=== PATIENT | female | born 1985 ===

== ENCOUNTER 2018-02-02 11:16 | Emergency (ER) | payer MEDICAID ==
[2018-02-02 12:47] VITALS: RESP 18; TEMP 98.2; O2SAT 98; BMI 28.3
[2018-02-02] MEDS ORDERED: Albuterol-Ipratrop 3 mg / 0.5 (3 ml) UD IH STA (12:49)
--- NOTE | 2018-02-02 13:30 | ED PDOC ---
Arrival/HPI - General Chief Complaint: Shortness Of Breath Time Seen by Provider: 02/02/18 12:49 Historian: Patient - History of Present Illness Narrative History of Present Illness (Text): 02/02/18 12:46 A 32 year old female, whose past medical history includes asthma, presents to the emergency department complaining of wheezing for 2 days. Patient states she uses nebulizer at home every other day. However ran out of medication 2 days ago. She reports that she does not have PMD follow-up till the so came to ED to get nebulizer as she did not want her asthma to get bad without her nebulizer. Denies fever, cough, uri complaints. Denies hx of intubations. PMD: Dr. Finley Time/Duration: < week (2 days) Symptom Onset: Gradual Symptom Course: Unchanged Past Medical History - Provider Review Nursing Documentation Reviewed: Yes - Cardiac Hx Cardiac Disorders: No - Pulmonary Hx Respiratory Disorders: Yes Hx Asthma: Yes - Neurological Hx Neurological Disorder: No - HEENT Hx HEENT Disorder: No - Renal Hx Renal Disorder: No - Endocrine/Metabolic Hx Endocrine Disorders: No - Hematological/Oncological Hx Blood Disorders: No - Integumentary Hx Dermatological Disorder: No - Musculoskeletal/Rheumatological Hx Musculoskeletal Disorders: No - Gastrointestinal Hx Gastrointestinal Disorders: No - Genitourinary/Gynecological Hx Genitourinary Disorders: No - Psychiatric Hx Psychophysiologic Disorder: No Hx Substance Use: No Family/Social History - Physician Review Nursing Documentation Reviewed: Yes Family/Social History: No Known Family HX Smoking Status: Former Smoker Hx Alcohol Use: Yes Frequency of alcohol use: Socially Hx Substance Use: No Allergies/Home Meds Allergies/Adverse Reactions: Allergies No Known Allergies Allergy (Verified 02/02/18 12:45) Review of Systems - Physician Review All systems were reviewed & negative as marked: Yes - Review of Systems Constitutional: absent: Weight Change, Fevers Respiratory: Wheezing. absent: Cough Cardiovascular: absent: Chest Pain, Palpitations, Edema, Calf Pain, [place], Orthopnea, Syncope Gastrointestinal: absent: Abdominal Pain, Constipation, Diarrhea, Nausea, Vomiting Genitourinary Female: absent: Dysuria Skin: absent: Rash, Pruritis Neurological: absent: Headache, Dizziness, Focal Weakness Psychiatric: absent: Anxiety Physical Exam Vital Signs Reviewed: Yes Vital Signs Temp Pulse Resp BP Pulse Ox 02/02/18 13:03 18 02/02/18 12:40 98.2 F 73 18 119/79 98 Temperature: Afebrile Blood Pressure: Normal Pulse: Regular Respiratory Rate: Normal Appearance: Positive for: Well-Appearing Pain Distress: None Mental Status: Positive for: Alert and Oriented X 3 - Systems Exam Head: Present: Atraumatic, Normocephalic Pupils: Present: PERRL Extroacular Muscles: Present: EOMI Conjunctiva: Present: Normal Mouth: Present: Moist Mucous Membranes Neck: Present: Normal Range of Motion Respiratory/Chest: Present: Wheezes (wheezing at base). No: Respiratory Distress Cardiovascular: Present: Regular Rate and Rhythm, Normal S1, S2. No: Murmurs Abdomen: Present: Normal Bowel Sounds. No: Tenderness, Distention, Peritoneal Signs Upper Extremity: Present: Normal Inspection Lower Extremity: Present: Normal Inspection. No: Edema Neurological: Present: GCS=15, CN II-XII Intact Psychiatric: Present: Alert, Oriented x 3, Normal Insight, Normal Concentration Medical Decision Making ED Course and Treatment: 02/02/18 12:49 Impression: 32 year old female with wheezing due to asthma. Physical exam shows some wheezing to base of lung pugh, no other acute findings on examination. She reports she came for albuterol refill Plan: -- Duoneb -- Reassess and disposition Progress Notes: 02/02/18 13:35 On reevaluation, wheezing resolved. Feels better and wants to go home - Medication Orders Current Medication Orders: Discontinued Medications Albuterol/Ipratropium (Duoneb 3 Mg/0.5 Mg (3 Ml) Ud) 3 ml IH STAT STA Stop: 02/02/18 12:50 Last Admin: 02/02/18 13:00 Dose: 3 ml - Scribe Statement The provider has reviewed the documentation as recorded by the Ermelinda Hanley Provider Scribe Attestation: All medical record entries made by the Maria Eugeniaibrebeka were at my direction and personally dictated by me. I have reviewed the chart and agree that the record accurately reflects my personal performance of the history, physical exam, medical decision making, and the department course for this patient. I have also personally directed, reviewed, and agree with the discharge instructions and disposition. Disposition/Present on Arrival - Present on Arrival Any Indicators Present on Arrival: No History of DVT/PE: No History of Uncontrolled Diabetes: No Urinary Catheter: No History of Decub. Ulcer: No History Surgical Site Infection Following: None - Disposition Have Diagnosis and Disposition been Completed?: Yes Diagnosis: Asthma Disposition: HOME/ ROUTINE Disposition Time: 13:36 Patient Plan: Discharge Patient Problems: Current Active Problems Problem Status Onset Asthma Acute Condition: GOOD Discharge Instructions (ExitCare): Asthma in Adults, Asthma, Adult (DC), Avoiding Asthma Triggers Additional Instructions: Follow-up with your PMD within 2 days. Return to ED if condition worsens. Use nebulizer as needed Prescriptions: Albuterol HFA [Ventolin HFA 90 mcg/actuation (8 g)] 2 puff IH [id number] #1 puff Albuterol 0.083% [Albuterol Sulfate 3 Ml] 3 ml IH Q6 #100 neb Referrals: Key Finley MD [Primary Care Provider] - Follow up with primary Forms: [employer] (Persian)
[2018-02-02 13:59] VITALS: BP 114/72; PULSE 70
== END 2018-02-02 13:59 | disposition home or self-care (01) ==
LOC: MERGE 11:16 → ED 11:16
DX: J45.909 Unspecified asthma, uncomplicated (principal); Z87.891 Personal history of nicotine dependence

== ENCOUNTER 2018-04-06 21:34 | Observation (INO) | payer MEDICAID ==
--- NOTE | 2018-04-06 22:41 | ED PDOC ---
Arrival/HPI - General Chief Complaint: Anxiety Time Seen by Provider: 04/06/18 22:33 Historian: Patient, Partner - History of Present Illness Narrative History of Present Illness (Text): 04/06/18 22:38 A 32 year old female, whose past medical history includes asthma and anemia, on Azithromycin and Prednisone, presents to the emergency department for complaint of dizziness and 2 near syncopal episodes today. The patient's fiancee states that she was feeling dizzy and complained of face tingling and her hands cramping up. He notes that the patient had near syncopal episodes twice today. The patient denies fevers, chills, chest pain, shortness of breath, nausea, vomiting, diarrhea, urinary/bowel changes, or any other complaint. PMD: Dr. Justin Jenkins Time/Duration: Other (Today) Symptom Onset: Sudden Symptom Course: Unchanged Activities at Onset: Rest, Light Context: Home Past Medical History - Provider Review Nursing Documentation Reviewed: Yes - Infectious Disease Hx of Infectious Diseases: None - Cardiac Hx Cardiac Disorders: No - Pulmonary Hx Respiratory Disorders: Yes Hx Asthma: Yes - Neurological Hx Neurological Disorder: No - HEENT Hx HEENT Disorder: No - Renal Hx Renal Disorder: No - Endocrine/Metabolic Hx Endocrine Disorders: No - Hematological/Oncological Hx Blood Disorders: Yes Hx Anemia: Yes - Integumentary Hx Dermatological Disorder: No - Musculoskeletal/Rheumatological Hx Musculoskeletal Disorders: No - Gastrointestinal Hx Gastrointestinal Disorders: No - Genitourinary/Gynecological Hx Genitourinary Disorders: No - Psychiatric Hx Psychophysiologic Disorder: No Hx Substance Use: No Family/Social History - Physician Review Nursing Documentation Reviewed: Yes Family/Social History: No Known Family HX Smoking Status: Former Smoker Hx Alcohol Use: Yes Hx Substance Use: No Allergies/Home Meds Allergies/Adverse Reactions: Allergies No Known Allergies Allergy (Verified 02/02/18 12:45) Home Medications: Home Meds Medication Instructions Recorded Confirmed Azithromycin [Z-Peter] 250 mg PO DAILY 04/06/18 04/06/18 predniSONE [predniSONE Tab] 20 mg PO DAILY 04/06/18 04/06/18 Review of Systems - Physician Review All systems were reviewed & negative as marked: Yes - Review of Systems Constitutional: absent: Fevers, Night Sweats Respiratory: absent: SOB, Cough Cardiovascular: absent: Chest Pain Gastrointestinal: absent: Stool Changes, Diarrhea, Nausea, Vomiting Genitourinary Female: absent: Urine Output Changes Neurological: Dizziness Physical Exam Vital Signs Reviewed: Yes Vital Signs Temp Pulse Resp BP Pulse Ox 04/06/18 21:50 98.6 F 98 H 18 129/79 100 Temperature: Afebrile Blood Pressure: Normal Pulse: Regular Respiratory Rate: Normal Appearance: Positive for: Well-Appearing, Non-Toxic, Comfortable Pain Distress: None Mental Status: Positive for: Alert and Oriented X 3 - Systems Exam Head: Present: Atraumatic, Normocephalic Pupils: Present: PERRL Extroacular Muscles: Present: EOMI Conjunctiva: Present: Normal Ears: Present: NORMAL TM Mouth: Present: Moist Mucous Membranes Pharnyx: Present: Normal Neck: Present: Normal Range of Motion Respiratory/Chest: Present: Clear to Auscultation, Good Air Exchange. No: Respiratory Distress, Accessory Muscle Use Cardiovascular: Present: Regular Rate and Rhythm, Normal S1, S2. No: Murmurs Abdomen: No: Tenderness, Distention, Peritoneal Signs Back: Present: Normal Inspection Upper Extremity: Present: Normal Inspection. No: Cyanosis, Edema Lower Extremity: Present: Normal Inspection. No: Edema Neurological: Present: GCS=15, CN II-XII Intact, Speech Normal, Motor Func Grossly Intact, Normal Sensory Function Skin: Present: Warm, Dry, Normal Color. No: Rashes Psychiatric: Present: Alert, Oriented x 3, Normal Insight, Normal Concentration Medical Decision Making ED Course and Treatment: 04/06/18 22:43 Impression: A 32 year old female presents to the emergency department complaining of dizziness and near syncopal episodes today. Plan: -- Head CT -- EKG -- Chest X-Ray -- Labs -- IV Fluids -- Reassess and disposition Progress Notes: 04/07/18 00:18: Chest X-Ray read and interpreted by me shows no acute processes. EKG: Ordered, reviewed, and independently interpreted the EKG. Rate : 60 BPM Rhythm : NSR CT Head Without Intravenous Contrast Dictated and Authenticated by: Augustin Berman MD 04/06/2018 11:40 PM Eastern Time ([place] & [place]) IMPRESSION: 1. No definite acute intracranial abnormality. 04/07/18 01:35: Case discussed in detail with [facility] resident and Dr. Irwin who accepts patient to hospitalist service. - Lab Interpretations Lab Results: 04/06/18 23:09 04/06/18 23:09 Lab Results 04/06/18 23:09: WBC 8.5, RBC 4.46, Hgb 13.0, Hct 37.5, MCV 84.1, MCH 29.1, MCHC 34.7, RDW 12.7, Plt Count 292, MPV 9.1 04/06/18 23:09: Sodium 144, Potassium 4.2, Chloride 107, Carbon Dioxide 23, Anion Gap 18, BUN 20, Creatinine 0.7, Est GFR ( Amer) > 60, Est GFR (Non- Af Amer) > 60, Random Glucose 132 H, Calcium 9.4, Total Bilirubin 0.1 L, AST 30 , ALT 25, Alkaline Phosphatase 50, Lactate Dehydrogenase 376, Total Creatine Kinase 69, Troponin I < 0.01, Total Protein 7.8, Albumin 4.6, Globulin 3.2, Albumin/Globulin Ratio 1.4 I have reviewed the lab results: Yes - RAD Interpretation Radiology Orders: 04/06/18 22:43 CHEST PORTABLE [RAD] Stat 04/06/18 22:44 HEAD W/O CONTRAST [CT] Stat - EKG Interpretation Interpreted by ED Physician: Yes Type: 12 lead EKG - Medication Orders Current Medication Orders: Sodium Chloride (Sodium Chloride 0.9%) 1,000 mls @ 100 mls/hr IV .Q10H JEANETTE Last Admin: 04/06/18 23:20 Dose: 100 mls/hr eMAR Start Stop Document 04/06/18 23:20 JOL (Rec: 04/06/18 23:41 JOL [id number]) Intravenous Solution Start Date 04/06/18 Start Time 23:20 Discontinued Medications Acetaminophen (Tylenol 325mg Tab) 650 mg PO STAT STA Stop: 04/07/18 01:27 Meclizine HCl (Antivert) 25 mg PO STAT STA Stop: 04/07/18 01:32 - Scribe Statement The provider has reviewed the documentation as recorded by the Maria Eugeniaibe Ivet Guo Provider Scribe Attestation: All medical record entries made by the Scribe were at my direction and personally dictated by me. I have reviewed the chart and agree that the record accurately reflects my personal performance of the history, physical exam, medical decision making, and the department course for this patient. I have also personally directed, reviewed, and agree with the discharge instructions and disposition. Disposition/Present on Arrival - Present on Arrival Any Indicators Present on Arrival: No History of DVT/PE: No History of Uncontrolled Diabetes: No Urinary Catheter: No History of Decub. Ulcer: No History Surgical Site Infection Following: None - Disposition Have Diagnosis and Disposition been Completed?: Yes Diagnosis: Near syncope, Vertigo Disposition: HOSPITALIZED Disposition Time: 01:42 Condition: STABLE Referrals: Key Finley MD [Primary Care Provider] - Follow up with primary Forms: [employer] (Malian)
[2018-04-06 23:19] LABS: MEAN CELL VOLUME 84.1 fl (80.0-105.0); MEAN CORPUSCULAR HEMOGLOBIN 29.1 pg (25.0-35.0); MEAN CORPUSCULAR HGB CONC 34.7 g/dl (31.0-37.0); MEAN PLATELET VOLUME 9.1 fl (7.0-11.0); RBC 4.46 10^6/uL (3.5-6.1); RED CELL DISTRIBUTION WIDTH 12.7 % (11.5-14.5); WHITE BLOOD COUNT 8.5 10^3/ul (4.5-11.0)
[2018-04-06] MEDS: Sodium Chloride 0.9% 1,000 ML IV SCH (23:20)
[2018-04-06 23:33] LABS: ALB/GLOB RATIO 1.4 (1.1-1.8); ALBUMIN 4.6 g/dL (3.0-4.8); ALT/SGPT 25 U/L (7-56); AST/SGOT 30 U/L (14-36); BLOOD UREA NITROGEN 20 mg/dL (7-21); CALCIUM 9.4 mg/dL (8.4-10.5); GFR AFRICAN-AMERICAN > 60; GFR NON-AFRICAN AMERICAN > 60
--- NOTE | 2018-04-06 23:40 | CT ---
EXAM: CT Head Without Intravenous Contrast CLINICAL HISTORY: 32 years old, female; Signs and symptoms; Dizziness; Additional info: Dizzy/near syncope TECHNIQUE: Axial computed tomography images of the head/brain without intravenous contrast. All CT scans at this facility use one or more dose reduction techniques, viz.: automated exposure control; ma/kV adjustment per patient size (including targeted exams where dose is matched to indication; i.e. head); or iterative reconstruction technique. Coronal and sagittal reformatted images were created and reviewed. COMPARISON: No relevant prior studies available. FINDINGS: Brain: No intracranial hemorrhage. No mass. No definite edema. Ventricles: No hydrocephalus. Bones/joints: No acute fracture. Soft tissues: Unremarkable. Sinuses: No acute sinusitis. Mastoid air cells: No mastoid effusion. Orbits: Unremarkable as visualized. IMPRESSION: 1. No definite acute intracranial abnormality.
[2018-04-06 23:44] LABS: TROPONIN I < 0.01 ng/mL
--- NOTE | 2018-04-07 02:41 | CP.PCM.HP ---
History of Present Illness - History of Present Illness History of Present Illness: PGY-[address] Irwin CC: Near syncope, Vertigo Ms Price, 32 year old female, whose past medical history includes asthma and pernicious anemia, on Azithromycin and Prednisone (just took 1st pills), c/o dizziness and 2 near syncopal episodes today. Pt started to have dry cough and sore throat recently, saw Dr Finley yesterday. During the office visit at 3pm, she receive B12 shot and 2nd hepatitis B vaccine series. She was prescribed Z- peter and predisone. At 5pm, pt took the prednisone and azithromycin. At 7pm, pt felt dizzy with room spinning, associated with face tinging and hands cramping up. Fiance helped pt to take a warm shower. As pt sat down, she became diaphoretic and briefly loss of vision. the spinning, lightheaded sensation and freddy-oral numbness was worsen with hand cramps b/l. The patient's fiancee notes that the patient had near syncopal episodes twice. All symptoms improves 2 hours after ED arrival. Pt denies ever taking Z-peter before. denies fevers, chills, tinnitus, chest pain, shortness of breath, nausea, vomiting, diarrhea, urinary/bowel changes, or any other complaint. PMD: Dr. Key Finley PMH: Asthma since childhood. never intubated. hospitalization at [facility] more than 5 years ago for asthma Pernicious Anemia, diagnosed recently Seasonal allergy OGBYN: . 1 surgical LMP 04/02/18. Heavy menses, irregular. Not on oral contraceptive pills PSH: None FH: Lupus, heart disease, DM, asthma SH: Live with 4 kids and fiance Former smoker, quit 2014. 2ppd x 15 years Wine once every 3-4 months Denies drugs All: NKDA Med: Azithromycin [Z-Peter] 250 mg daily filled 5/10 predniSONE [predniSONE Tab] 20 mg PO filled 5/10 Present on Admission - Present on Admission Any Indicators Present on Admission: No Past Patient History - Infectious Disease Hx of Infectious Diseases: None - Past Social History Smoking Status: Former Smoker - CARDIAC Hx Cardiac Disorders: No - PULMONARY Hx Respiratory Disorders: Yes Hx Asthma: Yes - NEUROLOGICAL Hx Neurological Disorder: No - HEENT Hx HEENT Problems: No - RENAL Hx Chronic Kidney Disease: No - ENDOCRINE/METABOLIC Hx Endocrine Disorders: No - HEMATOLOGICAL/ONCOLOGICAL Hx Blood Disorders: Yes Hx Anemia: Yes - INTEGUMENTARY Hx Dermatological Problems: No - MUSCULOSKELETAL/RHEUMATOLOGICAL Hx Musculoskeletal Disorders: No - GASTROINTESTINAL Hx Gastrointestinal Disorders: No - GENITOURINARY/GYNECOLOGICAL Hx Genitourinary Disorders: No - PSYCHIATRIC Hx Psychophysiologic Disorder: No Hx Substance Use: No - SURGICAL HISTORY Hx Surgeries: No Meds Allergies/Adverse Reactions: Allergies Allergy/AdvReac Type Severity Reaction Status Date / Time No Known Allergies Allergy Verified 02/02/18 12:45 Physical Exam - Constitutional Appears: No Acute Distress - Head Exam Head Exam: ATRAUMATIC, NORMAL INSPECTION, NORMOCEPHALIC - Eye Exam Eye Exam: EOMI, Normal appearance, PERRL. absent: Scleral icterus Pupil Exam: NORMAL ACCOMODATION - ENT Exam ENT Exam: Mucous Membranes Moist Additional comments: tender frontal sinus boggy turbinates b/l with erythema mucosa (nose) slightly injected throat post nasal drip - Neck Exam Neck exam: Positive for: Normal Inspection. Negative for: Lymphadenopathy - Respiratory Exam Respiratory Exam: Clear to Auscultation Bilateral. absent: Rales, Rhonchi, Wheezes - Cardiovascular Exam Cardiovascular Exam: REGULAR RHYTHM, +S1, +S2. absent: Systolic Murmur - GI/Abdominal Exam GI & Abdominal Exam: Normal Bowel Sounds, Soft. absent: Distended, Firm, Rigid - Extremities Exam Extremities exam: Positive for: normal capillary refill, pedal pulses present. Negative for: calf tenderness, pedal edema - Back Exam Back exam: absent: CVA tenderness (L), CVA tenderness (R), paraspinal tenderness - Neurological Exam Neurological exam: Alert, CN II-XII Intact, Oriented x3 Additional comments: AAOx3 CN 2-12 intact normal speech motor 5/5 sensory intact rapid alternative movement intact neg francis-hallpike test. no nystagmus Results - Vital Signs Recent Vital Signs: Last Vital Signs Temp 98.6 F 04/06/18 21:50 Pulse 98 H 04/06/18 21:50 Resp 18 04/06/18 21:50 BP 129/79 04/06/18 21:50 Pulse Ox 100 04/06/18 21:50 - Labs Result Diagrams: 04/06/18 23:09 04/06/18 23:09 Assessment & Plan - Assessment and Plan (Free Text) Plan: Ms Price, 32 year old female, whose past medical history includes asthma and pernicious anemia, on Azithromycin and Prednisone (just took 1st pill each), c/ o dizziness with room spinning, associated with face tingling and hands cramping. She had 2 near syncopal episodes today. Near syncope with vertigionous component, R/O metabolic cause R/O medication side effect Questionable bppv vs labyrinthitis. Doubt Menieres disease. - Hold Azithromycin - Syncope workup: Telemetry, orthostatic VS, carotid doppler, echo - CT head was negative for acute intracranial abnormality. - EKG shows NSR at 60 BPM - High Fall risk - Defer to neuro re: decision of meclizine - A1C, TSH face tingling, hands cramping Questionable due to mild dystonic reaction from azithromycin Possible electrolyte abnormality - occupational, physical therapy - CBC, CMP Sinusitis, allergic vs viral - Observe off antibiotics Asthma - Continue prednisolone taper PVX: protonix, scd s/r/d/w Dr Irwin
[2018-04-07 04:29] VITALS: BMI 28.5
[2018-04-07] MEDS ORDERED: Pantoprazole 40 mg EC Tab PO SCH (06:00)
[2018-04-07 06:24] LABS: BASO # 0.01 K/mm3 (0.0-2.0); BASO % 0.2 % (0.0-3.0); EOS # 0.1 (0.0-0.7); EOS % 1.5 % (1.5-5.0); GRAN # 3.95 (1.4-6.5); GRAN % 60.3 % (50.0-68.0); LYMPH # 1.9 (1.2-3.4); LYMPH % 28.7 % (22.0-35.0); MEAN CELL VOLUME 84.6 fl (80.0-105.0); MEAN CORPUSCULAR HGB CONC 33.1 g/dl (31.0-37.0); MONO # 0.6 (0.1-0.6); MONO % 9.3 % (1.0-6.0); RBC 4.29 10^6/uL (3.5-6.1); RED CELL DISTRIBUTION WIDTH 12.8 % (11.5-14.5); WHITE BLOOD COUNT 6.6 10^3/ul (4.5-11.0)
[2018-04-07 06:57] LABS: FREE T4 0.88 ng/dL (0.78-2.19)
[2018-04-07 07:22] LABS: ALB/GLOB RATIO 1.3 (1.1-1.8); ALBUMIN 3.9 g/dL (3.0-4.8); ALT/SGPT 20 U/L (7-56); AST/SGOT 26 U/L (14-36); BLOOD UREA NITROGEN 13 mg/dL (7-21); CALCIUM 8.7 mg/dL (8.4-10.5); GFR AFRICAN-AMERICAN > 60; GFR NON-AFRICAN AMERICAN > 60
[2018-04-07 08:01] VITALS: BP 108/71; RESP 19; TEMP 98.1; O2SAT 98
--- NOTE | 2018-04-07 08:24 | CP.PCM.CON ---
<Roxi Reyes - Last Filed: 04/07/18 15:32> History of Present Illness - History of Present Illness History of Present Illness: 32yo female PMHx asthma and pernicious anemia presented [place] [facility] [place] for dizziness and 2 near syncopal episodes. Patient reports she was feeling a little sick for a couple days prior and saw her PMD at 2:30pm where she got a b12 shot, HepA, HepB, and was prescribed a Zpack and Medrol dose pack. Patient returned home and upon taking her newly prescribed medications, she complained of some dizziness and had to lie down. She rpeorts her "eyesight went black" for a minute before coming back and she felt dizzy like the room was spinning. She stated that every time she would look a certain direction she felt like her eyes needed to "catch up." She also complained of her lips feeling numb and her noticed she looked pale and like her lips were puckered. She also had cramping of her hands and feet with associated numbness. She states when EMS came she didn't remember speaking to them. When she was brought into the ER she felt well for a couple minutes and wanted to go home and then started to complain of a 7-8/10 headache that was frontal, radiating to her occiput. She denied any associated photophobia or ringing of the ears. While in the ED she was also having trouble walking as she felt unstable and weak. Patient's reported she has had similar symptoms for the past 3-4 years but they have progressively worsened in the last 2-3 months. Patient's son was recently sick with an ear and throat infection which the patient believes she might have contracted- she had a temp 100.7F 2 days ago and some flu like symptoms. She also complained of some chest tightness and worsening asthma symptoms and a dry cough. She complained of nausea had diarrhea for 3 days [3-4x/day which resolved the day of admission]. Otherwise patient denied sore throat, chest pain , palpitations, SOB, abd pain, pain/swelling of her legs b/l. She did admit to some hand swelling that occurs when she exercises and in the heat. 12 point ROS obtained and negative, except as per HPI. PMHx: asthma, pernicious anemia PSurgHx: D&C Meds: pls see chart ALL: NKDA FamHx: Lupus, heart disease, DM, asthma; sister with Afib, mom with HTN SocHx: Live with 4 kids and fiance, Former smoker, quit 2014 and used to smoke 2ppd x since she was 15yo, Ocassional social EtOH, Denies drugs. PMD: [place] Neuro: none Review of Systems - Review of Systems All systems: reviewed and no additional remarkable complaints except Review of Systems: as per HPI Past Patient History - Infectious Disease Hx of Infectious Diseases: None - Past Social History Smoking Status: Former Smoker - CARDIAC Hx Cardiac Disorders: No - PULMONARY Hx Respiratory Disorders: Yes Hx Asthma: Yes - NEUROLOGICAL Hx Neurological Disorder: No - HEENT Hx HEENT Problems: No - RENAL Hx Chronic Kidney Disease: No - ENDOCRINE/METABOLIC Hx Endocrine Disorders: No - HEMATOLOGICAL/ONCOLOGICAL Hx Blood Disorders: Yes Hx Anemia: Yes - INTEGUMENTARY Hx Dermatological Problems: No - MUSCULOSKELETAL/RHEUMATOLOGICAL Hx Musculoskeletal Disorders: No - GASTROINTESTINAL Hx Gastrointestinal Disorders: No - GENITOURINARY/GYNECOLOGICAL Hx Genitourinary Disorders: No - PSYCHIATRIC Hx Psychophysiologic Disorder: No Hx Substance Use: No - SURGICAL HISTORY Hx Surgeries: No Meds Home Medications: Home Medication List Medication Instructions Recorded Confirmed Type Diazepam [Valium] 2 mg PO Q12H PRN #10 tablet 04/07/18 Rx Methylprednisolone [Medrol Dose See Taper PO DAILY #21 mg 04/07/18 Rx Pack (21 tabs)] Allergies/Adverse Reactions: Allergies Allergy/AdvReac Type Severity Reaction Status Date / Time No Known Allergies Allergy Verified 02/02/18 12:45 - Medications Medications: Current Medications Sodium Chloride (Sodium Chloride 0.9%) 1,000 mls @ 100 mls/hr IV .Q10H [facility] Last Admin: 04/06/18 23:20 Dose: 100 mls/hr Methylprednisolone (Medrol) 8 mg PO DAILY JEANETTE Pantoprazole Sodium (Protonix Ec Tab) 40 mg PO 0600 [facility] Physical Exam - Constitutional Appears: Non-toxic, No Acute Distress - Head Exam Head Exam: ATRAUMATIC, NORMAL INSPECTION, NORMOCEPHALIC - Eye Exam Eye Exam: EOMI, Normal appearance, PERRL Pupil Exam: NORMAL ACCOMODATION - ENT Exam ENT Exam: Mucous Membranes Moist - Respiratory Exam Respiratory Exam: NORMAL BREATHING PATTERN. absent: Accessory Muscle Use, Respiratory Distress - Cardiovascular Exam Cardiovascular Exam: +S1, +S2 - GI/Abdominal Exam GI & Abdominal Exam: Soft. absent: Tenderness - Extremities Exam Extremities exam: Positive for: normal inspection, pedal pulses present. Negative for: pedal edema - Neurological Exam Neurological exam: Alert, CN II-XII Intact, Oriented x3, Reflexes Normal - Psychiatric Exam Psychiatric exam: Normal Affect, Normal Mood - Skin Skin Exam: Dry, Intact, Normal Color, Warm Results - Vital Signs Recent Vital Signs: Last Vital Signs Temp 98.1 F 04/07/18 08:00 Pulse 61 04/07/18 08:00 Resp 19 04/07/18 08:00 BP 108/71 04/07/18 08:00 Pulse Ox 98 04/07/18 08:00 - Labs Result Diagrams: 04/07/18 05:30 04/07/18 05:30 Labs: Laboratory Results - last 24 hr 04/07/18 04/07/18 04/07/18 05:30 05:30 05:30 WBC 6.6 D RBC 4.29 Hgb 12.0 Hct 36.3 MCV 84.6 MCH 28.0 MCHC 33.1 RDW 12.8 Plt Count 279 MPV 9.0 Gran % 60.3 Lymph % (Auto) 28.7 Delta % (Auto) 9.3 H Eos % (Auto) 1.5 Baso % (Auto) 0.2 Gran # 3.95 Lymph # (Auto) 1.9 Delta # (Auto) 0.6 Eos # (Auto) 0.1 Baso # (Auto) 0.01 Sodium 144 Potassium 3.7 Chloride 110 H Carbon Dioxide 21 Anion Gap 17 BUN 13 Creatinine 0.6 L Est GFR ( Amer) > 60 Est GFR (Non-Af Amer) > 60 Random Glucose 90 Calcium 8.7 Total Bilirubin 0.2 AST 26 ALT 20 Alkaline Phosphatase 44 Total Protein 6.9 Albumin 3.9 Globulin 3.0 Albumin/Globulin Ratio 1.3 Free T4 0.88 TSH 3rd Generation 0.87 Assessment & Plan - Assessment and Plan (Free Text) Assessment: 32yo female PMHx asthma and pernicious anemia presented [place] [facility] [place]06 for dizziness and 2 near syncopal episodes. Plan: -recommend MRI w/ and w/o contrast and EEG outpatient -Valium 2mg q12 prn for dizziness -Head CT: unremarkable -CTA head/neck: unremarkable -Recommend patient to follow up with neurology with results of imaging in [address] Jj Reyes PGY2 <Jose Gardner - Last Filed: 04/07/18 18:47> Results - Vital Signs Recent Vital Signs: Last Vital Signs Temp 98.1 F 04/07/18 08:00 Pulse 83 04/07/18 14:00 Resp 19 04/07/18 08:00 BP 108/71 04/07/18 08:00 Pulse Ox 98 04/07/18 08:00 - Labs Result Diagrams: 04/07/18 05:30 04/07/18 05:30 Labs: Laboratory Results - last 24 hr 04/07/18 04/07/18 04/07/18 05:30 05:30 05:30 WBC 6.6 D RBC 4.29 Hgb 12.0 Hct 36.3 MCV 84.6 MCH 28.0 MCHC 33.1 RDW 12.8 Plt Count 279 MPV 9.0 Gran % 60.3 Lymph % (Auto) 28.7 Delta % (Auto) 9.3 H Eos % (Auto) 1.5 Baso % (Auto) 0.2 Gran # 3.95 Lymph # (Auto) 1.9 Delta # (Auto) 0.6 Eos # (Auto) 0.1 Baso # (Auto) 0.01 Sodium Potassium Chloride Carbon Dioxide Anion Gap BUN Creatinine Est GFR ( Amer) Est GFR (Non-Af Amer) Random Glucose Hemoglobin A1c 5.2 Calcium Total Bilirubin AST ALT Alkaline Phosphatase Total Protein Albumin Globulin Albumin/Globulin Ratio Free T4 0.88 TSH 3rd Generation 0.87 Urine HCG, Qual 04/07/18 04/07/18 05:30 08:00 WBC RBC Hgb Hct MCV MCH MCHC RDW Plt Count MPV Gran % Lymph % (Auto) Delta % (Auto) Eos % (Auto) Baso % (Auto) Gran # Lymph # (Auto) Delta # (Auto) Eos # (Auto) Baso # (Auto) Sodium 144 Potassium 3.7 Chloride 110 H Carbon Dioxide 21 Anion Gap 17 BUN 13 Creatinine 0.6 L Est GFR ( Amer) > 60 Est GFR (Non-Af Amer) > 60 Random Glucose 90 Hemoglobin A1c Calcium 8.7 Total Bilirubin 0.2 AST 26 ALT 20 Alkaline Phosphatase 44 Total Protein 6.9 Albumin 3.9 Globulin 3.0 Albumin/Globulin Ratio 1.3 Free T4 TSH 3rd Generation Urine HCG, Qual Negative Attending/Attestation - Attestation I have personally seen and examined this patient.: Yes I have fully participated in the care of the patient.: Yes I have reviewed all pertinent clinical information: Yes
--- NOTE | 2018-04-07 08:58 | RAD ---
HISTORY: dizzy COMPARISON: No prior. FINDINGS: LUNGS: No active pulmonary disease. PLEURA: No significant pleural effusion identified, no pneumothorax apparent. CARDIOVASCULAR: Normal. OSSEOUS STRUCTURES: No significant abnormalities. VISUALIZED UPPER ABDOMEN: Normal. OTHER FINDINGS: None. IMPRESSION: No active disease.
[2018-04-07] MEDS: Sodium Chloride 0.9% 1,000 ML IV SCH (09:42)
--- NOTE | 2018-04-07 10:24 | CARD ---
APPROVED REPORT EKG Measurement Heart [id number] <Conclusion> Normal sinus rhythm Normal ECG
--- NOTE | 2018-04-07 11:09 | CT ---
PROCEDURE: CT Angiography of the neck with contrast HISTORY: syncope COMPARISON: None available. TECHNIQUE: Contiguous axial images of the neck were obtained from the level of the skull-base to the superior mediastinum in the arteriographic phase of enhancement. Coronal and sagittal reformats or also generated. IV contrast dose: 150 cc of Omni 350 Radiation Dose - DLP: 484 mGy-cm This CT exam was performed using one or more of the following dose reduction techniques: Automated exposure control, adjustment of the mA and/or kV according to patient size, and/or use of iterative reconstruction technique. FINDINGS: RIGHT CAROTID ARTERIES: Common Carotid Artery: Normal. Carotid Bifurcation: Normal. Internal Carotid Artery:Normal. External Carotid Artery (proximal branches): Normal. LEFT CAROTID ARTERIES: Common Carotid Artery: Normal. Carotid Bifurcation: Normal. Internal Carotid Artery:Normal. External Carotid Artery (proximal branches): Normal. VERTEBRAL ARTERIES: Right Vertebral Artery: Normal. Left Vertebral Artery: Normal. OTHER FINDINGS: None. IMPRESSION: Normal CT Angiography of the neck. CT Angiography of the Brain. HISTORY: syncope COMPARISON: None available. TECHNIQUE: CT angiography of the intracranial arteries was performed. Coronal and sagittal maximum intensity projection reformated images were generated. This CT exam was performed using one or more of the following dose reduction techniques: Automated exposure control, adjustment of the mA and/or kV according to patient size, and/or use of iterative reconstruction technique. FINDINGS: INTERNAL CEREBRAL ARTERIES: Unremarkable. The skull base, petrous, cavernous and supraclinoid segments are bilaterally widely patent. ANTERIOR CEREBRAL ARTERIES: Unremarkable. A1 and A2 segments are widely patent. Smaller distal branches unremarkable, as visualized. MIDDLE CEREBRAL ARTERIES: Unremarkable. M1 and M2 segments are widely patent. Perisylvian branches grossly symmetric. POSTERIOR CIRCULATION: Basilar Artery: Unremarkable. Distal Vertebral Arteries: Unremarkable. Posterior Cerebral Arteries: Unremarkable. Posterior Inferior Cerebellar Arteries: Unremarkable. ANEURYSM/ VASCULAR MALFORMATIONS: None. OTHER FINDINGS: None. IMPRESSION: Unremarkable CT Angiography of the Brain.
[2018-04-07 14:31] VITALS: PULSE 83
--- NOTE | 2018-04-07 16:48 | CP.PCM.DIS ---
Provider - Provider Date of Admission: 04/07/18 01:40 Attending physician: Aditya Rodriguez MD Primary care physician: Key Finley MD Consults: Cardio - Holt Neuro - Korya Time Spent in preparation of Discharge (in minutes): 55 Hospital Course - Lab Results Lab Results: Most Recent Lab Values WBC 6.6 10^3/ul (4.5-11.0) D 04/07/18 05:30 RBC 4.29 10^6/uL (3.5-6.1) 04/07/18 05:30 Hgb 12.0 g/dL (12.0-16.0) 04/07/18 05:30 Hct 36.3 % (36.0-48.0) 04/07/18 05:30 MCV 84.6 fl (80.0-105.0) 04/07/18 05:30 MCH 28.0 pg (25.0-35.0) 04/07/18 05:30 MCHC 33.1 g/dl (31.0-37.0) 04/07/18 05:30 RDW 12.8 % (11.5-14.5) 04/07/18 05:30 Plt Count 279 10^3/uL (120.0-450.0) 04/07/18 05:30 MPV 9.0 fl (7.0-11.0) 04/07/18 05:30 Gran % 60.3 % (50.0-68.0) 04/07/18 05:30 Lymph % (Auto) 28.7 % (22.0-35.0) 04/07/18 05:30 [place] % (Auto) 9.3 % (1.0-6.0) H 04/07/18 05:30 Eos % (Auto) 1.5 % (1.5-5.0) 04/07/18 05:30 Baso % (Auto) 0.2 % (0.0-3.0) 04/07/18 05:30 Gran # 3.95 (1.4-6.5) 04/07/18 05:30 Lymph # (Auto) 1.9 (1.2-3.4) 04/07/18 05:30 [place] # (Auto) 0.6 (0.1-0.6) 04/07/18 05:30 Eos # (Auto) 0.1 (0.0-0.7) 04/07/18 05:30 Baso # (Auto) 0.01 K/mm3 (0.0-2.0) 04/07/18 05:30 Sodium 144 mmol/L (132-148) 04/07/18 05:30 Potassium 3.7 mmol/L (3.6-5.0) 04/07/18 05:30 Chloride 110 mmol/L (98-107) H 04/07/18 05:30 Carbon Dioxide 21 mmol/L (21-33) 04/07/18 05:30 Anion Gap 17 (10-20) 04/07/18 05:30 BUN 13 mg/dL (7-21) 04/07/18 05:30 Creatinine 0.6 mg/dl (0.7-1.2) L 04/07/18 05:30 Est GFR ( Amer) > 60 04/07/18 05:30 Est GFR (Non-Af Amer) > 60 04/07/18 05:30 Random Glucose 90 mg/dL (70-110) 04/07/18 05:30 Hemoglobin A1c 5.2 % (4.2-6.5) 04/07/18 05:30 Calcium 8.7 mg/dL (8.4-10.5) 04/07/18 05:30 Total Bilirubin 0.2 mg/dL (0.2-1.3) 04/07/18 05:30 AST 26 U/L (14-36) 04/07/18 05:30 ALT 20 U/L (7-56) 04/07/18 05:30 Alkaline Phosphatase 44 U/L (38-126) 04/07/18 05:30 Lactate Dehydrogenase 376 U/L (333-699) 04/06/18 23:09 Total Creatine Kinase 69 U/L (35-230) 04/06/18 23:09 Troponin I < 0.01 ng/mL 04/06/18 23:09 Total Protein 6.9 g/dL (5.8-8.3) 04/07/18 05:30 Albumin 3.9 g/dL (3.0-4.8) 04/07/18 05:30 Globulin 3.0 gm/dL 04/07/18 05:30 Albumin/Globulin Ratio 1.3 (1.1-1.8) 04/07/18 05:30 Free T4 0.88 ng/dL (0.78-2.19) 04/07/18 05:30 TSH 3rd Generation 0.87 mIU/mL (0.46-4.68) 04/07/18 05:30 Urine HCG, Qual Negative (NEGATIVE) 04/07/18 08:00 Discharge Exam - Head Exam Head Exam: ATRAUMATIC, NORMAL INSPECTION, NORMOCEPHALIC Discharge Plan - Discharge Medications Prescriptions: Diazepam [Valium] 2 mg PO Q12H PRN #10 tablet PRN Reason: Dizziness Methylprednisolone [Medrol Dose Pack (21 tabs)] See Taper PO DAILY #21 mg - Follow Up Plan Condition: STABLE Disposition: HOME/ ROUTINE Instructions: Vertigo (a Type of Dizziness) (DC), Hand Numbness, Near Fainting (DC) Additional Instructions: 1. Patient is to follow up with her primary care physician within one week of being discharge. 2. Patient is to follow up with Neurology, Dr. Abernathy, in 2 weeks. 3. Patient is to follow up with Cardiology, Dr. Holt, after completion of cardiac stress test. 4. Get Brain MRI and EEG as out patient prior to following up with Dr. Gardner. 5. Patient is to have outpatient cardiac stress test with Dr. Holt. Scheduled for April 27, 2018. 6. Take Medrol-dose mary jo as directed. 7. Take Valium 2mg every 12 hours as needed for dizziness. 8. Stop taking Azithromycin. 9. If patient experiences any new or concerning symptoms, please go directly to the nearest emergency room. 10. Take care of yourself and be well. Referrals: Key Finley MD [Primary Care Provider] - Jose Gardner MD [Staff Provider] -
--- NOTE | 2018-04-07 22:51 | US ---
PROCEDURE: Bilateral carotid artery duplex ultrasound HISTORY: Carotid stenosis PHYSICIAN(S): Levy Heart MD. TECHNIQUE: Duplex sonography and color-flow Doppler were used to evaluate the carotid bifurcations and limited segments of the vertebral arteries bilaterally. FINDINGS: There is mild smooth hypoechoic plaque noted at the carotid bifurcations bilaterally. The peak systolic velocity in the proximal right internal carotid artery is 76 cm/sec. This corresponds to a 0-19 percent proximal right ICA stenosis. Normal systolic velocities are noted in the proximal right external carotid artery. There is antegrade flow in the right vertebral artery. The peak systolic velocity in the proximal left internal carotid artery is 72 cm/sec. This corresponds to a 0-19 percent proximal left ICA stenosis. Normal systolic velocities are noted in the proximal left external carotid artery. There is antegrade flow in the left vertebral artery. IMPRESSION: 1. Bilateral 0-19 percent proximal ICA stenoses. 2. Antegrade flow in both vertebral arteries.
--- NOTE | 2018-04-08 01:47 | CON ---
DATE: 04/07/2018 LOCATION: The patient is in room 364, bed 1. REASON FOR CONSULTATION: Dizziness, near syncope, vague chest pain. HISTORY OF PRESENT ILLNESS: This is a 32-year-old female, who is known to have asthma and pernicious anemia, admitted with history that she felt dizziness and she felt that she is going to pass out. She also felt some numbness and tingling on the face. The patient also has had vague chest discomfort at that time. No history of nausea or vomiting. No history of palpitations. No history of shortness of breath associated with this episode. Denies any prior history of any recent chest pain or any cardiac symptoms. PAST MEDICAL HISTORY: Positive for asthma and pernicious anemia. PERSONAL HISTORY: Used to smoke till 2015, does not smoke now. No history of drinking. No history of any illicit drug seeking. ALLERGIES: THE PATIENT DENIES ANY ALLERGIES. FAMILY HISTORY: Positive for coronary artery disease, sister has atrial fibrillation. MEDICATIONS: The patient's home medications included Ventolin inhaler, she was recently put on Medrol Dosepak which is being tapered off, diazepam Valium 2 mg every hours p.r.n. REVIEW OF SYSTEMS: All other system reviewed, positive mentioned in the history, others were negative. PHYSICAL EXAMINATION VITAL SIGNS: Blood pressure 108/71, respirations 19, pulse 61, temperature 98.1. HEENT: Head is normocephalic. Eyes, pupils normal. Conjunctivae normal. Nose and throat normal. NECK: JVP low. Carotids equal. THORAX: AP diameter normal. LUNGS: Clear. CARDIOVASCULAR: S1 and S2. ABDOMEN: Soft. No tenderness. No organomegaly. Bowel sounds normal. EXTREMITIES: No clubbing, no cyanosis, no edema. No calf tenderness. LABORATORY DATA: WBC 6.6, hemoglobin 12, hematocrit is 36.3, platelets 279. Sodium 144, potassium 3.7, BUN 13, creatinine 0.6. AST and ALT are normal. Total protein and albumin are normal. T4 normal, TSH normal. EKG showed normal sinus rhythm. Chest x-ray, no active disease. Head and neck, CT angiography of the brain, unremarkable. DIAGNOSES: Dizziness, atypical vague chest pain, history of asthma, and history of anemia in the past. PLAN: The patient is going to have echocardiogram today and patient will be scheduled for stress test as an outpatient and will continue present therapy. Patient is on methylprednisolone 8 mg p.o. daily and Protonix 40 daily. The patient is receiving IV fluid. Sandra Holt MD
--- NOTE | 2018-04-08 08:46 | CARD ---
APPROVED REPORT EXAM: Two-dimensional and M-mode echocardiogram with Doppler and color Doppler. Other Information Quality : [employer] : INDICATION NEAR SYNCOPE 2D DIMENSIONS Left Atrium (2D)2.9 (1.6-4.0cm)IVSd0.9 (0.7-1.1cm) LVDd4.3 (3.9-5.9cm)PWd0.9 (0.7-1.1cm) LVDs2.9 (2.5-4.0cm)FS (%) 33.6 % LVEF (%)62.0 (>50%) M-Mode DIMENSIONS Aortic Root2.10 (2.2-3.7cm)Aortic Cusp Exc.1.40 (1.5-2.0cm) Aortic Valve AoV Peak Zxtlpqxo711.0cm/s Mitral Valve MV E Tzvromih02.7cm/sMV A Buwbeirg58.5cm/sE/A ratio1.5 TDI E/Lateral E'0.0E/Medial E'0.0 Tricuspid Valve TR Peak [id number] [id number] Peak Gr.24mmHg [id number] LEFT VENTRICLE The left ventricle is normal size. There is normal left ventricular wall thickness. The left ventricular function is normal. The left ventricular ejection fraction is within the normal range. There is normal LV segmental wall motion. RIGHT VENTRICLE The right ventricle is normal size. ATRIA The left atrium size is normal. The right atrium size is normal. The interatrial septum is intact with no evidence for an atrial septal defect. AORTIC VALVE The aortic valve is normal in structure. There is trace aortic regurgitation. MITRAL VALVE The mitral valve is normal in structure. TRICUSPID VALVE The tricuspid valve is normal in structure. There is mild tricuspid regurgitation. PULMONIC VALVE The pulmonic valve is not well visualized. There is mild pulmonic valvular regurgitation. GREAT VESSELS The aortic root is normal in size. PERICARDIAL EFFUSION There is no pericardial effusion. <Conclusion> The left ventricle is normal size. There is normal left ventricular wall thickness. The left ventricular function is normal.
== END 2018-04-07 17:15 | disposition home or self-care (01) ==
LOC: ED 21:34 → ERH 04-07 01:40 → 3RNO 04-07 04:30
PROVIDERS: ADMIT Internal Medicine; ATTEND Internal Medicine
DX: R55 Syncope and collapse (principal); R42 Dizziness and giddiness; R07.89 Other chest pain; D51.0 Vitamin B12 deficiency anemia due to intrinsic factor deficiency; J45.909 Unspecified asthma, uncomplicated; Z87.891 Personal history of nicotine dependence
CPT/HCPCS: 36415; 70450; 70496; 70498; 71045; 80053; 82550; 83036; 83615; 84439; 84443; 84484; 84703; 85025; 85027; 93005; 93306; 93880; 97162; 97530; 99285; G0378; G8978; G8979; J7040; J7509; Q9967

== ENCOUNTER 2018-04-12 12:30 | Emergency (ER) | payer MEDICAID ==
[2018-04-12 12:30] VITALS: BMI 28.5
[2018-04-12] MEDS ORDERED: Sodium Chloride 0.9% 1,000 ML IV STA (13:26)
[2018-04-12 14:11] VITALS: RESP 18
[2018-04-12 14:48] VITALS: BP 125/71
[2018-04-12 15:05] LABS: BASO # 0.02 K/mm3 (0.0-2.0); BASO % 0.2 % (0.0-3.0); EOS # 0.3 (0.0-0.7); GRAN # 4.34 (1.4-6.5); GRAN % 51.6 % (50.0-68.0); HEMOGLOBIN 13.2 g/dL (12.0-16.0); LYMPH # 3.2 (1.2-3.4); LYMPH % 37.5 % (22.0-35.0); MEAN CELL VOLUME 84.5 fl (80.0-105.0); MEAN CORPUSCULAR HEMOGLOBIN 28.8 pg (25.0-35.0); MEAN CORPUSCULAR HGB CONC 34.1 g/dl (31.0-37.0); MEAN PLATELET VOLUME 8.6 fl (7.0-11.0); MONO # 0.7 (0.1-0.6); MONO % 7.7 % (1.0-6.0); RBC 4.58 10^6/uL (3.5-6.1); RED CELL DISTRIBUTION WIDTH 12.6 % (11.5-14.5); WHITE BLOOD COUNT 8.4 10^3/ul (4.5-11.0)
[2018-04-12 15:15] LABS: INR 1.02 (0.93-1.08); PARTIAL THROMBOPLASTIN TIME 25.6 Seconds (25.1-36.5); PROTHROMBIN TIME 11.6 SECONDS (9.4-12.5)
[2018-04-12 15:39] LABS: TROPONIN I < 0.01 ng/mL
[2018-04-12 16:01] LABS: ALB/GLOB RATIO 1.3 (1.1-1.8); ALBUMIN 3.8 g/dL (3.0-4.8); ALT/SGPT 19 U/L (7-56); AST/SGOT 22 U/L (14-36); BLOOD UREA NITROGEN 20 mg/dL (7-21); CALCIUM 8.6 mg/dL (8.4-10.5); GFR AFRICAN-AMERICAN > 60; GFR NON-AFRICAN AMERICAN > 60
[2018-04-12 17:01] LABS: URINE BILIRUBIN NEGATIVE (NEGATIVE); URINE BLOOD NEGATIVE (NEGATIVE); URINE GLUCOSE (UA) NEGATIVE (NEGATIVE); URINE LEUKOCYTE ESTERASE TRACE Leu/uL (NEGATIVE); URINE PROTEIN NEGATIVE mg/dL (<30 mg/dL); URINE UROBILINOGEN 0.2 E.U./dL (<1 E.U./dL)
[2018-04-12 17:03] LABS: URINE APPEARANCE SL CLOUDY (CLEAR); URINE COLOR YELLOW (YELLOW)
[2018-04-12 17:10] LABS: URINE RBC NEGATIVE /hpf (0-2)
[2018-04-12 17:11] LABS: URINE BACTERIA MOD (NEG)
[2018-04-12 17:46] VITALS: PULSE 88; TEMP 98; O2SAT 96
== END 2018-04-12 17:46 | disposition home or self-care (01) ==
LOC: ED 12:30
DX: M62.838 Other muscle spasm (principal); F41.9 Anxiety disorder, unspecified
CPT/HCPCS: 80053; 81001; 82550; 83615; 84484; 85025; 85610; 85730; 87086; 99282; J7040

== ENCOUNTER 2018-04-13 11:34 | Emergency (ER) | payer MEDICAID ==
[2018-04-13 11:40] VITALS: BP 108/63; PULSE 78; RESP 18; TEMP 98.6; O2SAT 98; BMI 27.3
--- NOTE | 2018-04-13 11:57 | ED PDOC ---
Arrival/HPI - General Time Seen by Provider: 04/13/18 11:39 - History of Present Illness Narrative History of Present Illness (Text): 04/13/18 11:53 Patient is a 32 y/o F presenting with episode were she gets headache and then gets muscle cramping and anxiety. Symptoms last approximately 5 minutes and spontaneously resolve. Patient has no other associated symptoms- denies chest pain, shortness of breath, vision changes, focal weakness, dysuria, abdominal pain. Patient has had multiple episodes of similar symptoms and has had extensive workup. She was admitted for similar symptoms in early March and had negative CTA, duplex carotids, and echo. She had negative EEG yesterday and is scheduled for MRI on Tuesday and stress test on April 27. She was seen yesterday for similar symptoms and have negative preg, cbc, cmp and trop x 1. She reports all symptoms have now resolved. Denies homicidal or suicidal ideation. Past Medical History - Infectious Disease Hx of Infectious Diseases: None - Cardiac Hx Cardiac Disorders: No - Pulmonary Hx Respiratory Disorders: Yes Hx Asthma: Yes - Neurological Hx Neurological Disorder: No - HEENT Hx HEENT Disorder: No - Renal Hx Renal Disorder: No - Endocrine/Metabolic Hx Endocrine Disorders: No - Hematological/Oncological Hx Blood Disorders: Yes Hx Anemia: Yes - Integumentary Hx Dermatological Disorder: No - Musculoskeletal/Rheumatological Hx Musculoskeletal Disorders: No - Gastrointestinal Hx Gastrointestinal Disorders: No - Genitourinary/Gynecological Hx Genitourinary Disorders: No - Psychiatric Hx Psychophysiologic Disorder: No Hx Substance Use: No - Surgical History Hx Amputation: No Hx Appendectomy: No Hx Cardiac Catheterization: No Hx Cholecystectomy: No Hx Coronary Stent: No Hx Gastric Bypass Surgery: No Hx Hysterectomy: No Hx Inguinal Hernia Repair: No Hx Joint Replacement: No Hx Kidney Transplant: No Hx Liver Transplant: No Hx Mastectomy: No Hx Musculoskeletal Surgery: No Hx Open Heart Surgery: No Hx Orthopedic Surgery: No Hx Splenectomy: No Hx Valve Replacement: No Family/Social History Family/Social History: No Known Family HX Smoking Status: Former Smoker Hx Alcohol Use: Yes (occasional) Hx Substance Use: No Allergies/Home Meds Allergies/Adverse Reactions: Allergies No Known Allergies Allergy (Verified 04/12/18 13:18) Review of Systems - Review of Systems Constitutional: absent: Fatigue, Weight Change, Fevers Eyes: absent: Vision Changes ENT: absent: Hearing Changes Respiratory: absent: SOB, Cough, Wheezing Cardiovascular: absent: Chest Pain Gastrointestinal: absent: Abdominal Pain, Constipation, Diarrhea, Nausea, Vomiting Genitourinary Female: absent: Dysuria, Frequency, Hematuria, Urine Output Changes, Vaginal Bleeding, Vaginal Discharge Musculoskeletal: Arthralgias (cramping) Skin: absent: Rash Neurological: Headache. absent: Dizziness, Focal Weakness, Gait Changes, Speech Changes, Facial Droop, Disequilibrium, Seizure Psychiatric: Anxiety Physical Exam Vital Signs Temp Pulse Resp BP Pulse Ox 04/13/18 12:24 18 98 04/13/18 11:39 98.6 F 78 18 108/63 98 Temperature: Afebrile Blood Pressure: Normal Pulse: Regular Respiratory Rate: Normal Appearance: Positive for: Well-Appearing, Non-Toxic, Comfortable Pain Distress: None Mental Status: Positive for: Alert and Oriented X 3 - Systems Exam Head: Present: Atraumatic, Normocephalic Pupils: Present: PERRL Extroacular Muscles: Present: EOMI Conjunctiva: Present: Normal Mouth: Present: Moist Mucous Membranes Neck: Present: Normal Range of Motion. No: MIDLINE TENDERNESS Respiratory/Chest: Present: Clear to Auscultation, Good Air Exchange. No: Respiratory Distress, Accessory Muscle Use Cardiovascular: Present: Regular Rate and Rhythm Abdomen: No: Tenderness, Distention Back: Present: Normal Inspection Upper Extremity: Present: Normal Inspection Lower Extremity: Present: Normal Inspection Neurological: Present: GCS=15, CN II-XII Intact, Speech Normal, Motor Func Grossly Intact, Normal Sensory Function, Normal Cerebellar Funct, Gait Normal Skin: Present: Warm, Dry. No: Rashes Psychiatric: Present: Alert, Oriented x 3, Anxious Medical Decision Making ED Course and Treatment: 04/13/18 12:03 EKG shows NSR at 71bpm with normal intervals and no ST changes. Patient has normal vitals. She has had extensive negative inpatient workup, negative EEG yesterday and has MRI scheduled in 4 days and is scheduled for stress test on April 27. Spoke to Dr. Palmer, neurology. Patient has outpatient follow-up and no change in symptoms. Instructed to follow-up with neurology, cardiology and psychiatry for further evaluation. Patient, and mother are aware of need to follow-up with psychiatry for futher evaluation of anxiety if negative cardiology and neurology workup 04/13/18 12:36 Disposition/Present on Arrival - Present on Arrival Any Indicators Present on Arrival: No History of DVT/PE: No History of Uncontrolled Diabetes: No Urinary Catheter: No History Surgical Site Infection Following: None - Disposition Have Diagnosis and Disposition been Completed?: Yes Diagnosis: Muscle spasm, Anxiety Disposition: HOME/ ROUTINE Disposition Time: 12:04 Patient Plan: Discharge Patient Problems: Current Active Problems Problem Status Onset Anxiety Acute Muscle spasm Acute Condition: GOOD Additional Instructions: Follow-up with Dr. Palmer and Dr. Holt. Get MRI on Tuesday. Get stress test on April 27. Return immediately with any worsening symptoms. Referrals: Sandra Holt MD [Staff Provider] - Follow up with primary Ashish Palmer MD [Staff Provider] - Follow up with primary Forms: [employer] (Welsh)
--- NOTE | 2018-04-13 12:01 | ED PDOC ---
Arrival/HPI - General Time Seen by Provider: 04/13/18 11:39 Historian: Patient - History of Present Illness Narrative History of Present Illness (Text): This patient was seen on 04/12/18 and the Emergency provider was Humberto. 04/12/18 04:46 32yo female with no PMHX who was bib EMS for muscle spasm. The who was by the bedside states patient started getting this episodes last week and was seen here, admitted for it. Head CT and labs was negative. States she had EEG today and had similar episode. States she gets muscle spasms and everything tightens up during the episode. She is scheduled for brain MRI on Tuesday. Patient denies any complaint in ED. Her symptoms resolved when she was seen in ED. She denies focal neurological deficit, visual changes, urinary incontinence, tongue bite, abdominal pain, nausea, visual changes, headache, any other complaint. Past Medical History - Provider Review Nursing Documentation Reviewed: Yes - Infectious Disease Hx of Infectious Diseases: None - Cardiac Hx Cardiac Disorders: No - Pulmonary Hx Respiratory Disorders: Yes Hx Asthma: Yes - Neurological Hx Neurological Disorder: No - HEENT Hx HEENT Disorder: No - Renal Hx Renal Disorder: No - Endocrine/Metabolic Hx Endocrine Disorders: No - Hematological/Oncological Hx Blood Disorders: Yes Hx Anemia: Yes - Integumentary Hx Dermatological Disorder: No - Musculoskeletal/Rheumatological Hx Musculoskeletal Disorders: No - Gastrointestinal Hx Gastrointestinal Disorders: No - Genitourinary/Gynecological Hx Genitourinary Disorders: No - Psychiatric Hx Psychophysiologic Disorder: No Hx Substance Use: No - Surgical History Hx Amputation: No Hx Appendectomy: No Hx Cardiac Catheterization: No Hx Cholecystectomy: No Hx Coronary Stent: No Hx Gastric Bypass Surgery: No Hx Hysterectomy: No Hx Inguinal Hernia Repair: No Hx Joint Replacement: No Hx Kidney Transplant: No Hx Liver Transplant: No Hx Mastectomy: No Hx Musculoskeletal Surgery: No Hx Open Heart Surgery: No Hx Orthopedic Surgery: No Hx Splenectomy: No Hx Valve Replacement: No Family/Social History - Physician Review Nursing Documentation Reviewed: Yes Family/Social History: Unknown Family HX Smoking Status: Former Smoker Hx Alcohol Use: Yes (occasional) Hx Substance Use: No Allergies/Home Meds Allergies/Adverse Reactions: Allergies No Known Allergies Allergy (Verified 04/12/18 13:18) Review of Systems - Physician Review All systems were reviewed & negative as marked: Yes - Review of Systems Constitutional: Normal Eyes: Normal ENT: Normal Respiratory: Normal Cardiovascular: Normal Gastrointestinal: Normal Genitourinary Female: Normal Musculoskeletal: Normal Skin: Normal Neurological: Other (Muscular spsams) Endocrine: Normal Hemo/Lymphatic: Normal Psychiatric: Normal Physical Exam Vital Signs Reviewed: Yes Vital Signs Temp Pulse Resp BP Pulse Ox 04/13/18 12:24 18 98 04/13/18 11:39 98.6 F 78 18 108/63 98 Temperature: Afebrile Blood Pressure: Normal Pulse: Regular Respiratory Rate: Normal Appearance: Positive for: Well-Appearing, Non-Toxic, Comfortable Pain Distress: None Mental Status: Positive for: Alert and Oriented X 3 - Systems Exam Head: Present: Atraumatic, Normocephalic Pupils: Present: PERRL Extroacular Muscles: Present: EOMI Conjunctiva: Present: Normal Mouth: Present: Moist Mucous Membranes Neck: Present: Normal Range of Motion Respiratory/Chest: Present: Clear to Auscultation, Good Air Exchange. No: Respiratory Distress, Accessory Muscle Use Cardiovascular: Present: Regular Rate and Rhythm, Normal S1, S2. No: Murmurs Abdomen: No: Tenderness, Distention, Peritoneal Signs Back: Present: Normal Inspection Upper Extremity: Present: Normal Inspection. No: Cyanosis, Edema Lower Extremity: Present: Normal Inspection. No: Edema Neurological: Present: GCS=15, CN II-XII Intact, Speech Normal, Motor Func Grossly Intact, Normal Sensory Function, Normal Cerebellar Funct, Norm Deep Tendon Reflexes, Gait Normal, Memory Normal, Normal 2Pt Descrimination, Other ( No focal neurological deficit) Skin: Present: Warm, Dry, Normal Color. No: Rashes Psychiatric: Present: Alert, Oriented x 3, Normal Insight, Normal Concentration Medical Decision Making ED Course and Treatment: 04/13/18 12:04 PT present to ED on 04/12/18 for generalized muscle spasm. Patient chart was reviewed from 04/07/17 when she was seen here for same complaint. 04/13/18 12:09 Her lab was unremarkable in ED. She had Head CT when she was seen here last week and she is neurologically intact and have no indication for a repeat CT today. Pt is stable for admission and f/u for out pt work up. She have MRI scheduled for Tuesday. Called Dr. Palmer to [place] with her and she stated that she will call back in 15minutes. Patient however eloped from the ED before she can be discharged home. Disposition/Present on Arrival - Present on Arrival Any Indicators Present on Arrival: No History of DVT/PE: No History of Uncontrolled Diabetes: No Urinary Catheter: No History Surgical Site Infection Following: None - Disposition Have Diagnosis and Disposition been Completed?: Yes Diagnosis: Muscle spasm, Anxiety Disposition: HOME/ ROUTINE Disposition Time: 18:20 Patient Plan: Discharge Condition: GOOD Additional Instructions: Follow-up with Dr. Palmer and Dr. Holt. Get MRI on Tuesday. Get stress test on April 27. Return immediately with any worsening symptoms. Referrals: Ashish Palmer MD [Staff Provider] - Follow up with primary Sandra Holt MD [Staff Provider] - Follow up with primary Forms: [employer] (Kazakh)
--- NOTE | 2018-04-13 21:52 | CARD ---
APPROVED REPORT EKG Measurement Heart [id number] <Conclusion> Normal sinus rhythm Normal ECG
== END 2018-04-13 12:45 | disposition home or self-care (01) ==
LOC: ED 11:34
DX: M62.838 Other muscle spasm (principal); F41.9 Anxiety disorder, unspecified

== ENCOUNTER 2018-06-06 18:19 | Emergency (ER) | payer MEDICAID ==
[2018-06-06 18:20] VITALS: BMI 27.3
[2018-06-06 19:02] VITALS: TEMP 98
--- NOTE | 2018-06-06 19:57 | ED PDOC ---
Arrival/HPI - General Chief Complaint: Female Genitourinary Time Seen by Provider: 06/06/18 19:10 Historian: Patient EM Caveat: Acuity of Condition - History of Present Illness Narrative History of Present Illness (Text): 06/06/18 19:50 Pt is a 32 yr old female who presents to the ED for 3 days of dysuria, bladder and low back pain. Pt reports burning and frequency of urination but denies hematuria, abdominal pain, sob, cp, fever, vomiting, diarrhea, or any other complaints. Pt reports unprotected sex with one partner for many months; PMD is Dr Finley Time/Duration: < week Symptom Onset: Gradual Symptom Course: Worsening Quality: Cramping, Burning Severity Level: 5 Activities at Onset: Rest Context: Home Past Medical History - Provider Review Nursing Documentation Reviewed: Yes - Travel History Have you recently traveled outside [place] w/in the past 3 mons?: No - Past History Past History: No Previous - Infectious Disease Hx of Infectious Diseases: None - Cardiac Hx Cardiac Disorders: No - Pulmonary Hx Respiratory Disorders: Yes Hx Asthma: Yes - Neurological Hx Neurological Disorder: No - HEENT Hx HEENT Disorder: No - Renal Hx Renal Disorder: No - Endocrine/Metabolic Hx Endocrine Disorders: No - Hematological/Oncological Hx Blood Disorders: Yes Hx Anemia: Yes - Integumentary Hx Dermatological Disorder: No - Musculoskeletal/Rheumatological Hx Musculoskeletal Disorders: No - Gastrointestinal Hx Gastrointestinal Disorders: No - Genitourinary/Gynecological Hx Genitourinary Disorders: No - Psychiatric Hx Psychophysiologic Disorder: No Hx Substance Use: No - Surgical History Hx Amputation: No Hx Appendectomy: No Hx Cardiac Catheterization: No Hx Cholecystectomy: No Hx Coronary Stent: No Hx Gastric Bypass Surgery: No Hx Hysterectomy: No Hx Inguinal Hernia Repair: No Hx Joint Replacement: No Hx Kidney Transplant: No Hx Liver Transplant: No Hx Mastectomy: No Hx Musculoskeletal Surgery: No Hx Open Heart Surgery: No Hx Orthopedic Surgery: No Hx Splenectomy: No Hx Valve Replacement: No Family/Social History - Physician Review Nursing Documentation Reviewed: Yes Family/Social History: Unknown Family HX Smoking Status: Former Smoker Hx Alcohol Use: Yes (occasional) Hx Substance Use: No Allergies/Home Meds Allergies/Adverse Reactions: Allergies No Known Allergies Allergy (Verified 06/06/18 19:02) Review of Systems - Review of Systems Systems not reviewed;Unavailable: Acuity of Condition Constitutional: Normal. absent: Fevers Eyes: Normal ENT: Normal Respiratory: Normal. absent: SOB Cardiovascular: Normal. absent: Chest Pain Gastrointestinal: Normal, Nausea. absent: Abdominal Pain Genitourinary Female: Dysuria, Frequency, Urine Output Changes. absent: Hematuria, Vaginal Bleeding, Vaginal Discharge Musculoskeletal: Normal, Back Pain (low) Skin: Normal Neurological: Normal. absent: Headache, Dizziness, Gait Changes Endocrine: Normal Hemo/Lymphatic: Normal Psychiatric: Anxiety Physical Exam Vital Signs Reviewed: Yes Vital Signs Temp Pulse Resp BP Pulse Ox 06/06/18 21:25 100 06/06/18 21:19 70 17 125/82 100 06/06/18 19:01 98.0 F 75 18 124/89 99 Temperature: Afebrile Blood Pressure: Normal Pulse: Regular Respiratory Rate: Normal Appearance: Positive for: Well-Appearing, Non-Toxic, Comfortable Pain Distress: Moderate Mental Status: Positive for: Alert and Oriented X 3 - Systems Exam Head: Present: Atraumatic, Normocephalic Neck: Present: Normal Range of Motion Respiratory/Chest: Present: Clear to Auscultation, Good Air Exchange. No: Respiratory Distress, Accessory Muscle Use Cardiovascular: Present: Regular Rate and Rhythm, Normal S1, S2. No: Murmurs Abdomen: Present: Normal Bowel Sounds. No: Tenderness, Distention, Peritoneal Signs Back: Present: Normal Inspection. No: CVA Tenderness, Midline Tenderness, Paraspinal Tenderness, Pain with Leg Raise Upper Extremity: Present: Normal Inspection, Normal ROM, NORMAL PULSES, Neurovascularly Intact, Capillary Refill < 2s. No: Cyanosis, Edema Lower Extremity: Present: Normal Inspection, NORMAL PULSES, Normal ROM, Neurovascularly Intact, Capillary Refill < 2 s. No: Edema, CALF TENDERNESS Neurological: Present: GCS=15, CN II-XII Intact, Speech Normal, Motor Func Grossly Intact, Normal Sensory Function, Gait Normal Skin: Present: Warm, Dry, Normal Color. No: Rashes Psychiatric: Present: Alert, Oriented x 3, Normal Insight, Normal Concentration , Anxious Medical Decision Making ED Course and Treatment: 06/06/18 20:04 Impression Pt is a 32 yr old female who presents to the ED for 3 days of dysuria, bladder and low back pain. Working Dx: UTI Plan UA GC/chlamydia pain management assess and dispo Progress note UA significant fo UTI: Leuk esterase pos WBC 20-25 Pyridium and Macrobid po STAT advised to continue drinking plenty of fluids Take macrobid for 7 days and pyridium for bladder pain prn f/u with PMD in 2 days 06/07/18 00:06 - Lab Interpretations Lab Results: Lab Results 06/06/18 19:51: Urine Color Yellow, Urine Appearance Slight-cloudy, Urine pH 6.0 , Ur Specific [place] >= 1.030, Urine Protein 100 H, Urine Glucose (UA) Negative , Urine Ketones Negative, Urine Blood Large H, Urine Nitrate Negative, Urine Bilirubin Negative, Urine Urobilinogen 1.0 H, Ur Leukocyte Esterase Small H, Urine RBC 2 - 5, Urine WBC 20 - 25, Ur Epithelial Cells 3 - 4 - Medication Orders Current Medication Orders: Discontinued Medications Ketorolac Tromethamine (Toradol) 30 mg IM STAT STA Stop: 06/06/18 20:06 Last Admin: 06/06/18 20:11 Dose: 30 mg MAR Pain Assessment Document 06/06/18 20:11 SF (Rec: 06/06/18 20:[address] [id number]) Pain Reassessment Is this a pain reassessment? Yes Sleep Is patient sleeping during reassessment? No Presence of Pain Presence of Pain Yes IM Administration Charges Document 06/06/18 20:11 SF (Rec: 06/06/18 20:[address] [id number]) Injection Site MAR Injection Site Left Deltoid Charges for Administration # of IM Administrations 1 Nitrofurantoin Macrocrystals (Macrobid) 100 mg PO STAT STA PRN Reason: Protocol Stop: 06/06/18 20:51 Last Admin: 06/06/18 21:23 Dose: 100 mg Disposition/Present on Arrival - Present on Arrival Any Indicators Present on Arrival: Yes History of DVT/PE: No History of Uncontrolled Diabetes: No Urinary Catheter: No History of Decub. Ulcer: No History Surgical Site Infection Following: None - Disposition Have Diagnosis and Disposition been Completed?: Yes Diagnosis: UTI (urinary tract infection) Disposition: HOME/ ROUTINE Disposition Time: 20:52 Patient Plan: Discharge Condition: GOOD Discharge Instructions (ExitCare): Urinary Tract Infections in Adults Additional Instructions: AJITH OREILLY, thank you for letting us take care of you today. Your provider was Abdoul Clements MD and NEERU Krishnamurthy and you were treated for URINARY TRACT INFECTION. The emergency medical care you received today was directed at your acute symptoms. If you were prescribed any medication, please fill it and take as directed. It may take several days for your symptoms to resolve. Return to the Emergency Department if your symptoms worsen, do not improve, or if you have any other problems. PLEASE SEE YOUR PRIMARY CARE DOCTOR IN THE NEXT 2 DAYS Please contact your doctor or call one of the physicians/clinics you have been referred to that are listed on the Patient Visit Information form that is included in your discharge packet. Bring any paperwork you were given at discharge with you along with any medications you are taking to your follow up visit. Our treatment cannot replace ongoing medical care by a primary care provider outside of the emergency department. Thank you for allowing the [facility] team to be part of your care today. If you had a blood, urine, or wound culture: It will take several days for the results, if any change in treatment is needed we will contact you. Prescriptions: Nitrofurantoin Macrocrystals [Macrobid] 100 mg PO BID 7 Days #14 cap Phenazopyridine [Pyridium] 200 mg PO TID 5 Days #15 tab Forms: [employer] (Mauritanian)
[2018-06-06 20:01] LABS: URINE BILIRUBIN NEGATIVE (NEGATIVE); URINE BLOOD LARGE (NEGATIVE); URINE GLUCOSE (UA) NEGATIVE (NEGATIVE); URINE LEUKOCYTE ESTERASE SMALL Leu/uL (NEGATIVE); URINE PROTEIN 100 mg/dL (<30 mg/dL)
[2018-06-06 20:02] LABS: URINE APPEARANCE SLIGHT-CLOUDY (CLEAR); URINE COLOR YELLOW (YELLOW)
[2018-06-06 20:10] LABS: URINE WBC 20 - 25 /hpf (0-6)
[2018-06-06 21:20] VITALS: BP 125/82; PULSE 70; RESP 17; O2SAT 100
== END 2018-06-06 21:29 | disposition home or self-care (01) ==
LOC: ED 18:19
DX: N39.0 Urinary tract infection, site not specified (principal); Z87.891 Personal history of nicotine dependence
CPT/HCPCS: 81001; 87086; 96372; 99284; J1885

== ENCOUNTER 2018-11-28 00:52 | Emergency (ER) | payer MEDICAID ==
[2018-11-28 00:52] VITALS: BMI 27.3
--- NOTE | 2018-11-28 00:59 | ED PDOC ---
Arrival/HPI - General Chief Complaint: Shortness Of Breath Time Seen by Provider: 11/28/18 00:57 Historian: Patient - History of Present Illness Narrative History of Present Illness (Text): 11/28/18 00:59 33 year old female, whose past medical history includes asthma, presents complaining of shortness of breath tonight. Patient reports she is having an asthma attack and tried her Albuterol treatments with no relief. Patient denies any fever, chills, chest pain, nausea, vomiting, diarrhea, urinary symptoms, back pain, neck pain, headache, dizziness, or any other complaints. Symptom Onset: Gradual Symptom Course: Unchanged Activities at Onset: Light Context: Home Past Medical History - Provider Review Nursing Documentation Reviewed: Yes - Past History Past History: No Previous - Infectious Disease Hx of Infectious Diseases: None - Cardiac Hx Cardiac Disorders: No - Pulmonary Hx Respiratory Disorders: Yes Hx Asthma: Yes - Neurological Hx Neurological Disorder: No - HEENT Hx HEENT Disorder: No - Renal Hx Renal Disorder: No - Endocrine/Metabolic Hx Endocrine Disorders: No - Hematological/Oncological Hx Blood Disorders: Yes Hx Anemia: Yes - Integumentary Hx Dermatological Disorder: No - Musculoskeletal/Rheumatological Hx Musculoskeletal Disorders: No - Gastrointestinal Hx Gastrointestinal Disorders: No - Genitourinary/Gynecological Hx Genitourinary Disorders: No - Psychiatric Hx Psychophysiologic Disorder: No Hx Substance Use: No - Surgical History Hx Amputation: No Hx Appendectomy: No Hx Cardiac Catheterization: No Hx Cholecystectomy: No Hx Coronary Stent: No Hx Gastric Bypass Surgery: No Hx Hysterectomy: No Hx Joint Replacement: No Hx Kidney Transplant: No Hx Liver Transplant: No Hx Mastectomy: No Hx Musculoskeletal Surgery: No Hx Open Heart Surgery: No Hx Orthopedic Surgery: No Hx Splenectomy: No Hx Valve Replacement: No Family/Social History - Physician Review Nursing Documentation Reviewed: Yes Family/Social History: No Known Family HX Smoking Status: Former Smoker Hx Alcohol Use: Yes (occasional) Hx Substance Use: No Allergies/Home Meds Allergies/Adverse Reactions: Allergies No Known Allergies Allergy (Verified 06/06/18 19:02) Review of Systems - Physician Review All systems were reviewed & negative as marked: Yes - Review of Systems Constitutional: absent: Fevers, Other (Chills) Respiratory: SOB Cardiovascular: absent: Chest Pain Genitourinary Female: absent: Dysuria, Frequency, Hematuria Musculoskeletal: absent: Back Pain, Neck Pain Neurological: absent: Headache, Dizziness Physical Exam Vital Signs Reviewed: Yes Temperature: Afebrile Blood Pressure: Normal Pulse: Regular Respiratory Rate: Normal Appearance: Positive for: Well-Appearing, Non-Toxic, Comfortable Pain Distress: None Mental Status: Positive for: Alert and Oriented X 3 - Systems Exam Head: Present: Atraumatic, Normocephalic Pupils: Present: PERRL Extroacular Muscles: Present: EOMI Conjunctiva: Present: Normal Mouth: Present: Moist Mucous Membranes Respiratory/Chest: Present: Wheezes (bilaterally). No: Respiratory Distress, Accessory Muscle Use Cardiovascular: Present: Regular Rate and Rhythm, Normal S1, S2. No: Murmurs Abdomen: No: Tenderness, Distention, Peritoneal Signs Neurological: Present: GCS=15, CN II-XII Intact, Speech Normal Skin: Present: Warm, Dry, Normal Color. No: Rashes Psychiatric: Present: Alert, Oriented x 3, Normal Insight, Normal Concentration Medical Decision Making ED Course and Treatment: 11/28/18 00:59 Impression: 33 year female presents for asthma exacerbation tonight. PE shows wheezes bilaterally. Plan: -- Douneb, Solu-medrol -- Reassess and disposition Prior Visits: Notes and results from previous visits were reviewed. Progress Notes: 11/28/18 02:17 On re-evaluation, patient feels better and is in no acute distress. I have discussed the plan with the patient, who expresses understanding. Patient in agreement with plan to be discharged home. Patient is stable for discharge. Patient was instructed to follow up with physician or return if symptoms worsen or new concerning symptoms arise. - Scribe Statement The provider has reviewed the documentation as recorded by the Ermelinda Lopez Provider Scribe Attestation: All medical record entries made by the Scribrebeka were at my direction and personally dictated by me. I have reviewed the chart and agree that the record accurately reflects my personal performance of the history, physical exam, medical decision making, and the department course for this patient. I have also personally directed, reviewed, and agree with the discharge instructions and disposition. Disposition/Present on Arrival - Present on Arrival Any Indicators Present on Arrival: No History of DVT/PE: No History of Uncontrolled Diabetes: No Urinary Catheter: No History of Decub. Ulcer: No History Surgical Site Infection Following: None - Disposition Have Diagnosis and Disposition been Completed?: Yes Diagnosis: Asthma exacerbation Disposition: HOME/ ROUTINE Disposition Time: 02:11 Patient Plan: Discharge Condition: GOOD Additional Instructions: Medication as prescribed/follow up with your doctor as needed Prescriptions: Albuterol 0.083% [Albuterol 0.083% Inhal Ksenia (2.5 mg/3 ml) UD] 3 ml IH Q4 PRN #1 pkg PRN Reason: Wheezing predniSONE [Prednisone] 40 mg PO DAILY #10 tab Albuterol HFA [Ventolin HFA 90 mcg/actuation (8 g)] 2 puff IH [id number] PRN #1 puff PRN Reason: Wheezing Forms: [employer] (Spanish)
[2018-11-28 01:00] VITALS: RESP 18; TEMP 98.2
[2018-11-28] MEDS ORDERED: Albuterol-Ipratrop 3 mg / 0.5 (3 ml) UD IH STA ×2 (01:00→01:41)
[2018-11-28 03:40] VITALS: BP 119/82; PULSE 89; O2SAT 100
== END 2018-11-28 02:24 | disposition home or self-care (01) ==
LOC: ED 00:52
DX: J45.901 Unspecified asthma with (acute) exacerbation (principal); Z87.891 Personal history of nicotine dependence
CPT/HCPCS: 96374; 99284; J2930